=== PATIENT | female | born 1980 | race Caucasian/White ===

== ENCOUNTER 2018-03-24 11:50 | Day surgery (SDC) | payer MEDICAID ==
[~2018-03-24] VITALS: Ht 149.9 cm; Wt 83.6 kg
[2018-03-24] MEDS ORDERED: PROPOFOL 1% 20 ML VIAL IVP ONE (11:51)
[2018-03-24] MEDS ORDERED: LIDOCAINE/PF 2% 5 ML VIAL IM ONE (11:51)
[2018-03-24] MEDS ORDERED: MIDAZOLAM HCL 2 MG/2 ML VIAL IVP ONE (11:51)
[2018-03-24] MEDS ORDERED: SODIUM CHLORIDE 0.9% 1,000 ML IV ONE ×2 (12:12→14:00)
[2018-03-24 12:59] LABS: GLUCOMETER DEV NAME(LOC) SDS.; GLUCOSE,POINT OF CARE 72 MG/DL (70-110)
[2018-03-24] MEDS ORDERED: RANI150T7 PO (12:59)
[2018-03-24] MEDS ORDERED: LEVO75 PO (12:59)
[2018-03-24] MEDS ORDERED: ERGO500014 PO (12:59)
[2018-03-24] MEDS ORDERED: FentaNYL CITRATE-PF 100 MCG/2 ML VIAL ONE (14:14)
[2018-03-24] MEDS ORDERED: MIDAZOLAM HCL 5 MG/ML VIAL ONE (14:14)
== END 2018-03-24 18:00 | disposition home or self-care (01) ==
LOC: SURGERY 11:50
PROVIDERS: ATTEND Internal Medicine Gastroenterology
DX: K29.60 Other gastritis without bleeding (principal); K21.9 Gastro-esophageal reflux disease without esophagitis; E03.9 Hypothyroidism, unspecified; E55.9 Vitamin D deficiency, unspecified; F15.21 Other stimulant dependence, in remission; Z98.51 Tubal ligation status; Z87.891 Personal history of nicotine dependence; Z79.899 Other long term (current) drug therapy; Z80.0 Family history of malignant neoplasm of digestive organs
CPT/HCPCS: 43239; 82962; C1769; J2250; J2704; J3490; J7030; 88305; 88312; J3010